=== PATIENT | female | born 1975 | race Caucasian/White ===

== ENCOUNTER 2023-12-17 11:02 | Emergency (ER) | payer BC, SELFPAY ==
[2023-12-17 11:16] VITALS: BP 112/71; PULSE 71; RESP 17; TEMP 36.1; O2SAT 100
[2023-12-17 11:32] VITALS: BP 112/71; PULSE 71; RESP 17; TEMP 36.1; O2SAT 100
--- NOTE | 2023-12-17 11:33 | PC.NURSE ---
in br to obtain ua spec.
--- NOTE | 2023-12-17 12:00 | ED_ITS ---
HPI - Abdominal Pain General Chief Complaint: Abdominal Pain Stated Complaint: Lower Right Abdominal Pain Source: patient Mode of arrival: ambulatory Limitations: no limitations History of Present Illness HPI narrative: Patient presents for evaluation of right lower quadrant pain. Symptom onset 3 days ago. She has a constant dull ache that she rates a 5/10 severity. She has intermittent periods of sharp pain that she rates 6 to 7/10 in severity. She has a history of kidney stones but had pain in her flank with circumferential radiation to the abdomen with stones. She also has a history of ovarian cyst bu t historically had them on the left side. She denies any fever, chills, nausea, vomiting, urinary symptoms. Surgical history positive for tubal ligation and section. She has a history of regular menstruation. LMP 11/25/23. Denies vaginal bleeding or discharge. Related Data Home Medications Medication Instructions Recorded Confirmed No Home Medications 12/17/23 12/17/23 Allergies Allergy/AdvReac Type Severity Reaction Status Date / Time No Known Allergies Allergy Verified 12/17/23 11:05 Review of Systems Review of Systems: CONSTITUTIONAL: Denies fever, chills, or sweats. EYES: Denies visual changes, redness, or discharge. ENT: Denies rhinorrhea, congestion, sore throat, or otalgia. CARDIOVASCULAR: Denies chest pain, palpitations, or edema. RESPIRATORY: Denies cough or dyspnea. GASTROINTESTINAL: Reports RLQ pain. Denies nausea, vomiting, or diarrhea. GENITOURINARY: Denies dysuria or hematuria. SKIN: Denies rash or itching. MUSCULOSKELETAL: Denies back pain, joint pain, or myalgia. NEUROLOGIC: Denies headache, numbness, dizziness, or weakness. PSYCHIATRIC: Denies anxiety or depression. [facility] Past Medical History Medical History Ovarian cyst Surgical History Surgical History History of History of tubal ligation Family History Family History Mother Family history non-contributory Social History Social History (Updated 12/17/23 @ 12:06 by Bobo L.E. Karen, [employer], [employer]) Smoking status: Never smoker Alcohol intake: current Alcohol use details: rare social Substance use: never Living arrangements: with family Gender identity (if verbalized by the patient): Female Sexual Orientation (if Verbalized by the Patient): Straight or Heterosexual Spiritual care concerns: No Exam Narrative: GENERAL: Well-appearing, well-nourished, and in no acute distress. HEAD: Normocephalic, atraumatic. EYES: PERRLA and EOMI. ENT: Nares clear, no rhinorrhea or epistaxis. Mucous membranes moist. Oropharynx without tonsillar hypertrophy exudate or other lesions. Bilateral TMs pearly mena nonbulging NECK: Supple. No adenopathy or masses. No carotid bruits or JVD CHEST: Clear to auscultation. No respiratory distress. No wheezes rales or rhonchi HEART: Regular rate and rhythm. No murmur heard. Normal peripheral pulses. ABDOMEN: Soft, nondistended, normal active bowel sounds. There is tenderness in RLQ without rebound or guarding. EXTREMITIES: Normal range of motion. No edema. SKIN: Warm, dry, no rash. NEURO: No focal deficits. Alert and oriented x3. PSYCH: Normal mood and affect. Course Course Emergency Course: This is a 48-year-old female who presented for evaluation of right-sided abdominal pain. Her urine today does not have evidence of infection. She is tender in the right lower quadrant. I recommended she go to the hospital for further evaluation. She is agreeable with this plan. [facility] as her facility of choice. I contacted [facility] Emergency Department spoke with Dr. Hathaway who agrees to accept pt for transfer there. Level of Care: Express Care Visit Vital Signs Vital signs: Vital Signs Temperature 36.1 C L 12/17/23 11:16 Pulse Rate 71 12/17/23 11:16 Respiratory Rate 17 12/17/23 11:16 Blood Pressure 112/71 12/17/23 11:16 Pulse Oximetry 100 12/17/23 11:16 Temperature 36.1 C L 12/17/23 11:32 Pulse Rate 71 12/17/23 11:32 Respiratory Rate 17 12/17/23 11:32 Blood Pressure 112/71 12/17/23 11:32 Pulse Oximetry 100 12/17/23 11:32 MDM - Abdominal Pain Lab Data Labs: Lab Results 12/17/23 Range/Units 11:58 POC Urine Color Yellow POC Urine Clarity Clear POC Urine pH 7.0 POC Ur Specif [place] 1.015 POC Urine Protein Negative (Negative) POC Ur Glucose (UA) Negative (Negative) POC Urine Ketones Negative (Negative) POC Urine Blood Negative (Negative) POC Urine Nitrite Negative (Negative) POC Urine Bilirubin Negative (Negative) POC Urine Urobilinogen 0.2 POC U Leukocyte Esteras Negative (Negative) Discharge Plan Discharge Clinical Impression: Abdominal pain Patient Disposition: Acute Care Hospital Condition: Stable Prescriptions: No Action No Home Medications Follow-up/Referrals: UNKNOWN,DOCTOR [Primary Care Provider] - Time of Disposition: 12:08
[2023-12-17 12:01] LABS: EDUAAPPEAR Clear; EDUABILI Negative (Negative); EDUABLOOD Negative (Negative); EDUACOLOR1 Yellow; EDUAGLUCOSE Negative (Negative); EDUAKETONE Negative (Negative); EDUALEUKO Negative (Negative); EDUANITRATE Negative (Negative); EDUAPROTEIN Negative (Negative); EDUASPGRAVITY 1.015; EDUAUROBILI 0.2
== END 2023-12-17 12:00 | disposition short-term general hospital (02) ==
PROVIDERS: Emergency Provider Nurse Practitioner
DX: R10.31 Right lower quadrant pain (principal)
CPT/HCPCS: 81003; 99202; G0463

== ENCOUNTER 2023-12-17 12:31 | Emergency (ER) | payer BC, SELFPAY ==
--- NOTE | ~2023-12-17 | CT_ITS ---
EXAMINATION: CT abdomen pelvis w con DATE: 12/17/2023 15:21 INDICATION: right lower quadrant abdominal pain TECHNIQUE: Computed tomography (CT) of the abdomen and pelvis was performed with 100 mL Omnipaque-350 intravenous contrast. Automated exposure control and iterative reconstruction technique were employe d. The dose-length product was 663.93 mGy-cm. COMPARISON: None. FINDINGS: Lower thorax: Multiple sub-6 mm pulmonary nodules. Liver: Normal. Biliary/Gallbladder: Gallbladder is normal. No bile duct dilation. Pancreas: No mass or duct dilation. Spleen: Normal. Adrenals:No mass. Kidneys: No suspicious mass, obstructing stone, or hydronephrosis. Subcentimeter lower pole hypodensi ty, may represent a cyst, focal cortical scar, or insertion site of an accessory renal vessel. GI tract: Mild distal esophageal and gastric wall edema. No small or large bowel dilation. Normal leslee endix. Mesentery/Peritoneum: No ascites, mass, or free air. Retroperitoneum: No mass. Pelvis: Pelvic organs are within normal limits. Soft Tissues: Soft tissues and body wall unremarkable. Bones: No acute osseous finding. IMPRESSION: Mild esophagitis/gastritis. Otherwise, no acute abdominopelvic process detected. Multiple subcentimeter pulmonary nodules, likely representing granulomas. If the patient is at high r isk, consider an optional follow-up low-dose noncontrast CT of the chest in 12 months. Reviewed, dictated and finalized at location [facility]. ER/FITTER IMPRESSION: Mild esophagitis/gastritis. Otherwise, no acute abdominopelvic process detected. Multiple subcentimeter pulmonary nodules, likely representing granulomas. If th e patient is at high risk, consider an optional follow-up low-dose noncontrast CT of the chest in 12 months.
[2023-12-17 12:55] VITALS: BP 109/53; PULSE 76; RESP 16; TEMP 36.2; O2SAT 98
--- NOTE | 2023-12-17 14:50 | ED.GENADULT ---
HPI - General Adult General Chief complaint: Abdominal Pain Stated complaint: sent from for RLQ pain Time Seen by Provider: 12/17/23 14:37 History of Present Illness HPI narrative: patient is a 48 year male presents emergency department with chief complaint of abdominal pain. Patient reports that since she has been having pain in the right lower quadrant area. The patient reports she has had some nausea reports that pain is dull but then develops. Some sharpness. The patient denies radiation to her back Related Data Home Medications Medication Instructions Recorded Confirmed No Home Medications 12/17/23 12/17/23 Allergies Allergy/AdvReac Type Severity Reaction Status Date / Time No Known Allergies Allergy Verified 12/17/23 11:05 Review of Systems Review of Systems: A 10 system review of systems was completed on the patient and is negative except for what is stated in the HPI. Nursing and ancillary documentation was reviewed. [facility] Past Medical History Medical History Ovarian cyst Surgical History Surgical History History of History of tubal ligation Family History Family History Mother Family history non-contributory Social History Social History Smoking status: Never smoker Alcohol intake: current Alcohol use details: rare social Substance use: never Living arrangements: with family Gender identity (if verbalized by the patient): Female Sexual Orientation (if Verbalized by the Patient): Straight or Heterosexual Spiritual care concerns: No Exam Narrative: GENERAL: Well-appearing, well-nourished, and in no acute distress. HEAD: Normocephalic, atraumatic. EYES: PERRLA and EOMI. ENT: Nares clear, no rhinorrhea or epistaxis. Mucous membranes moist. NECK: Supple. CHEST: Clear to auscultation. No respiratory distress. HEART: Regular rate and rhythm. No murmur heard. Normal peripheral pulses. ABDOMEN: Soft, Tenderness to palpation right lower quadrant, nondistended, normal active bowel sounds. EXTREMITIES: Normal range of motion. No edema. SKIN: Warm, dry, no rash. NEURO: No focal deficits. Alert and oriented x3. PSYCH: Normal mood and affect. Course Vital Signs Vital signs: Vital Signs Temperature 36.2 C L 12/17/23 12:55 Pulse Rate 76 12/17/23 12:55 Respiratory Rate 16 12/17/23 12:55 Blood Pressure 109/53 L 12/17/23 12:55 Pulse Oximetry 98 12/17/23 12:55 Oxygen Delivery Room Air 12/17/23 12:55 Temperature 36.2 C L 12/17/23 12:55 Pulse Rate 70 12/17/23 16:47 Respiratory Rate 19 12/17/23 16:47 Blood Pressure 110/55 L 12/17/23 16:47 Pulse Oximetry 99 12/17/23 16:47 Oxygen Delivery Room Air 12/17/23 12:55 Medical Decision Making MDM Narrative Medical decision making narrative: differential diagnosis includes appendicitis, intra-abdominal infection, UTI, ureterolithiasis laboratory studies were obtained on the patient showed normal CBC normal CMP urinalysis showed no evidence of acute infection Vital Signs Vital Signs: Vital Signs Temperature 36.2 C L 12/17/23 12:55 Pulse Rate 76 12/17/23 12:55 Respiratory Rate 16 12/17/23 12:55 Blood Pressure 109/53 L 12/17/23 12:55 Pulse Oximetry 98 12/17/23 12:55 Oxygen Delivery Room Air 12/17/23 12:55 Temperature 36.2 C L 12/17/23 12:55 Pulse Rate 70 12/17/23 16:47 Respiratory Rate 19 12/17/23 16:47 Blood Pressure 110/55 L 12/17/23 16:47 Pulse Oximetry 99 12/17/23 16:47 Oxygen Delivery Room Air 12/17/23 12:55 Lab Data 12/17/23 15:02 12/17/23 15:18 Labs: Lab Results 12/17/23 12/17/23 12/17/23 Range/Units 14:51 14:53 15:02 WBC 6.1 (4.5-10.0) K/mm3 RBC 4.12 L (4.2-5.4) M/mm3 Hgb 13.0 (12.0-15.0) g/dL Hct 38.7 (37.0-47.0) % MCV 93.9 (80-100) fl MCH 31.6 (26-34) pg MCHC 33.6 (32-36) g/dl RDW 12.3 (11.5-14.5) % Plt Count 308 (150-375) k/mm3 MPV 9.7 (7.4-10.4) fl Immature Gran % (Auto) 0.2 (0-0.5) % Neut % (Auto) 46.9 (45.5-73.1) % Lymph % (Auto) 39.6 (18.3-44.2) % [place] % (Auto) 9.1 H (2.6-8.5) % Eos % (Auto) 3.4 (0-4.4) % Baso % (Auto) 0.8 (0.2-1.2) % Lymph # (Auto) 2.43 (0.9-3.2) K/mm3 [place] # (Auto) 0.6 (0.1-0.6) K/mm3 Eos # (Auto) 0.2 (0-0.3) K/mm3 Baso # (Auto) 0.1 (0.0-0.1) K/mm3 Abs Immat Gran (auto) 0.01 (0.00-0.031) K/mm3 Absolute Neuts (auto) 2.9 (1.3-6.7) K/mm3 Absolute Nucleated RBC 0.000 (0.0-0.012) K/mm3 Nucleated RBC % 0.0 (0.0-0.2) % Sodium 136 L (137-145) mmol/L Potassium 3.9 (3.4-5.0) mmol/L Chloride 104 (98-107) mmol/L Carbon Dioxide 26 (22-30) mmol/L Anion Gap 6 (4-12) mmol/L BUN 10 (7-17) mg/dL Creatinine 0.60 L (0.7-1.0) mg/dL Estim Creat Clear Calc 107 ml/min Estimated GFR > 60 (59 - ) Glucose 89 (65-110) mg/dL Calcium 8.8 (8.4-10.2) mg/dL Total Bilirubin 0.5 (0.2-1.3) mg/dL AST 25 (14-36) U/L ALT 25 (6-35) U/L Alkaline Phosphatase 57 (38-126) U/L Total Protein 8.0 (6.3-8.2) g/dL Albumin 4.4 (3.5-5.1) g/dL Lipase 68 (23-300) U/L Urine Color Yellow (Yellow) Urine Appearance Clear (Clear) Urine pH 7.5 (5.0-9.0) Ur Specific [place] 1.007 (1.001-1.035) Urine Protein Negative (Negative) mg/dL Urine Glucose (UA) Negative (Negative) mg/dL Urine Ketones Negative (Negative) mg/dL Ur Blood (Man) Negative (Negative) Urine Nitrate Negative (Negative) Urine Bilirubin Negative (Negative) Urine Urobilinogen 0.2 (<2.0) mg/dL Leukocyte Esterase Rfl Negative (Negative) PEYMAN/UL POC Urine HCG, Qual Negative (Negative) 12/17/23 Range/Units 15:18 WBC (4.5-10.0) K/mm3 RBC (4.2-5.4) M/mm3 Hgb (12.0-15.0) g/dL Hct (37.0-47.0) % MCV (80-100) fl MCH (26-34) pg MCHC (32-36) g/dl RDW (11.5-14.5) % Plt Count (150-375) k/mm3 MPV (7.4-10.4) fl Immature Gran % (Auto) (0-0.5) % Neut % (Auto) (45.5-73.1) % Lymph % (Auto) (18.3-44.2) % [place] % (Auto) (2.6-8.5) % Eos % (Auto) (0-4.4) % Baso % (Auto) (0.2-1.2) % Lymph # (Auto) (0.9-3.2) K/mm3 [place] # (Auto) (0.1-0.6) K/mm3 Eos # (Auto) (0-0.3) K/mm3 Baso # (Auto) (0.0-0.1) K/mm3 Abs Immat Gran (auto) (0.00-0.031) K/mm3 Absolute Neuts (auto) (1.3-6.7) K/mm3 Absolute Nucleated RBC (0.0-0.012) K/mm3 Nucleated RBC % (0.0-0.2) % Sodium (137-145) mmol/L Potassium (3.4-5.0) mmol/L Chloride (98-107) mmol/L Carbon Dioxide (22-30) mmol/L Anion Gap (4-12) mmol/L BUN (7-17) mg/dL Creatinine 0.80 (0.7-1.0) mg/dL Estim Creat Clear Calc 82 ml/min Estimated GFR > 60 (59 - ) Glucose (65-110) mg/dL Calcium (8.4-10.2) mg/dL Total Bilirubin (0.2-1.3) mg/dL AST (14-36) U/L ALT (6-35) U/L Alkaline Phosphatase (38-126) U/L Total Protein (6.3-8.2) g/dL Albumin (3.5-5.1) g/dL Lipase (23-300) U/L Urine Color (Yellow) Urine Appearance (Clear) Urine pH (5.0-9.0) Ur Specific [place] (1.001-1.035) Urine Protein (Negative) mg/dL Urine Glucose (UA) (Negative) mg/dL Urine Ketones (Negative) mg/dL Ur Blood (Man) (Negative) Urine Nitrate (Negative) Urine Bilirubin (Negative) Urine Urobilinogen (<2.0) mg/dL Leukocyte Esterase Rfl (Negative) PEYMAN/UL POC Urine HCG, Qual (Negative) Discharge Plan Discharge Clinical Impression: Abdominal pain Patient Disposition: Home, Self-Care Condition: Stable Instructions: Antibiotic Form, Abdominal Pain (ED) Prescriptions: No Action No Home Medications Follow-up/Referrals: UNKNOWN,DOCTOR [Non-Staff] - [facility]ANNALISE [Primary Care Provider] - Time of Disposition: 17:07
[2023-12-17 14:55] LABS: BEDSIDEPREGUCG Negative (Negative)
[2023-12-17] MEDS: ONDANSETRON INJ 4 MG/2 ML VIAL IV PUSH (14:57)
[2023-12-17] MEDS: MORPHINE SULFATE (*CRX) 4 MG/ML INJ IV PUSH (14:57)
[2023-12-17 14:58] LABS: Add Urine Microscopic? NO; Appearance Urine Clear (Clear); Bilirubin Urine Negative (Negative); Blood Urine Negative (Negative); Color Urine Yellow (Yellow); Glucose Urine UA Negative (Negative); Ketones Urine Negative (Negative); Leukocyte Esterase Ur Negative LEU/UL (Negative); Nitrate Urine Negative (Negative); Protein Urine Negative (Negative); Specific Grav Ur 1.007 (1.001-1.035); Urobilinogen Urine 0.2 mg/dL (<2.0); pH Urine 7.5 (5.0-9.0)
[2023-12-17 15:05] VITALS: BP 111/62; PULSE 79; RESP 16; O2SAT 98
[2023-12-17 15:07] LABS: Basophils Absolute Auto 0.1 K/mm3 (0.0-0.1); Basophils Percent Auto 0.8 % (0.2-1.2); Eosinophils Absolute Auto 0.2 K/mm3 (0-0.3); Eosinophils Percent Auto 3.4 % (0-4.4); Hematocrit 38.7 % (37.0-47.0); Immature Granulocyte Absolute 0.01 K/mm3 (0.00-0.031); Immature Granulocyte Percent A 0.2 % (0-0.5); Lymphocytes Absolute Auto 2.43 K/mm3 (0.9-3.2); Lymphocytes Percent Auto 39.6 % (18.3-44.2); Mean Corpuscular HGB Conc 33.6 g/dl (32-36); Mean Corpuscular Hemoglobin 31.6 pg (26-34); Mean Corpuscular Volume 93.9 fl (80-100); Mean Platelet Volume 9.7 fl (7.4-10.4); Monocytes Absolute Auto 0.6 K/mm3 (0.1-0.6); Monocytes Percent Auto 9.1 % (2.6-8.5); Neutrophils Absolute Auto 2.9 K/mm3 (1.3-6.7); Neutrophils Percent Auto 46.9 % (45.5-73.1); Platelet Count Result 308 k/mm3 (150-375); Red Blood Count 4.12 M/mm3 (4.2-5.4); Red Cell Distribution Width 12.3 % (11.5-14.5); White Blood Count 6.1 K/mm3 (4.5-10.0)
[2023-12-17 15:19] LABS: Alanine Aminotransferase 25 U/L (6-35); Albumin Level 4.4 g/dL (3.5-5.1); Alkaline Phosphatase 57 U/L (38-126); Anion Gap 6 mmol/L (4-12); Aspartate Amino Transferase 25 U/L (14-36); Bilirubin,Total 0.5 mg/dL (0.2-1.3); Blood Urea Nitrogen 10 mg/dL (7-17); Calcium 8.8 mg/dL (8.4-10.2); Carbon Dioxide 26 mmol/L (22-30); Chloride 104 mmol/L (98-107); Estimated CRCL calculation 107 ml/min; Estimated Glomerular Filt Rate > 60; Glucose 89 mg/dL (65-110); Lipase 68 U/L (23-300); Potassium 3.9 mmol/L (3.4-5.0); Sodium 136 mmol/L (137-145)
[2023-12-17 15:21] LABS: Estimated CRCL calculation 82 ml/min; Estimated Glomerular Filt Rate > 60
[2023-12-17 16:47] VITALS: BP 110/55; PULSE 70; RESP 19; O2SAT 99
== END 2023-12-17 17:25 | disposition home or self-care (01) ==
PROVIDERS: Emergency Provider Emergency Medicine
DX: R10.31 Right lower quadrant pain (principal); K20.90 Esophagitis, unspecified without bleeding; K29.70 Gastritis, unspecified, without bleeding; R91.8 Other nonspecific abnormal finding of lung field
CPT/HCPCS: 36415; 74177; 80053; 81003; 81025; 83690; 85025; 96374; 96375; 99284; J2270; J2405; Q9967

== ENCOUNTER 2024-03-23 13:56 | Emergency (ER) | payer OTHER, SELFPAY ==
--- OUTSIDE RECORDS SUMMARY | 2024-03-23 13:59 | XMS_ITS | Patient Health Summary ---
Author Organization [facility] Address [address] [place] [address] Care Team Providers Care School Secretary Name Role Phone Maria A Boyce MD Unavailable [phone] [facility],non-owned Affiliates and Associated Physician Practices is amultiple site organization consisting of ambulatory clinics and hospital sitesin [place], [place] and [place]. This disclosure is being madepursuant to the Care Everywhere program and may not contain all information available regarding this patient. Last updated 17.[facility] Allergies No known active allergies Active Problems Problem Noted Date Diagnosed Date Encounter for routine screen ing for malformation using ultrasonics 08/20/2013 Sequential Screen 06/21/2013 Advanced maternal age (AMA) in 014 History of LEEP (loop electr osurgical excision procedure) of cervix complicating 06/21/2013 H/O: 06/21/2013 Social History Tobacco Use Types Packs/Day Years Used Date Smoking Tobacco: Never Smokeless Tobacco: Never Alcohol Use Standard Drinks/Week Comments Never 0 (1 standard drink = 0.6 oz pur e alcohol) Sex and Gender Information Value Date Recorded Sex Assigned at Not on file Gender Identity Not on file Sexual Orientation Not on file Last Filed Vital Signs Vital Sign Reading Time Taken Comments Blood Pressure 110/74 08/18/2021 9:02 AM CDT Pulse 83 09/10/2014 11:20 AM CDT Temperature 36.9 C (98.5 F) 09/10/2014 11:20 AM CDT Respiratory Rate 18 09/10/2014 11:20 AM CDT Oxygen Saturation - - Inhaled Oxygen Concentration - - Weight 90.3 kg (199 lb) 08/18/2021 9:02 AM CDT Height 160 cm (5' 3 ) 08/18/2021 9:02 AM CDT Body Mass Index 35.25 08/18/2021 9:02 AM CDT Procedures * ANTI-MULLERIAN HORMONE FEMALE(Performed 08/18/2021) 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 * XR CALCANEUS RIGHT 2VW OR MORE(Performed 09/19/2016) * MRI ABDOMEN WWO CONTRAST(Performed 10/20/2014) * CREATININE BLOOD - POCT (IP) [facility](Performed 10/20/2014) * CANCER ANTIGEN (CA) 19-9(Performed 09/10/2014) * ALPHA FETOPROTEIN BLOOD TUMOR MARKER(Performed 09/10/2014) * HEPATITIS C ANTIBODY(Performed 09/10/2014) * HEPATITIS B SURFACE ANTIGEN W RFLX CONFIRMATION(Performed 09/10/2014) * CEA BLOOD(Performed 09/10/2014) * COMPREHENSIVE METABOLIC PANEL(Performed 09/10/2014) * CBC W AUTO DIFFERENTIAL(Performed 09/10/2014) * CBC W AUTO DIFFERENTIAL(Performed 09/10/2014) * SONOGRAM - COMPLETE(Performed 08/20/2013) Performed for Advanced maternal age (AMA) in , second trimester * SONOGRAM - COMPLETE(Performed 06/25/2013) Performed for Sequential Screen, Advanced maternal age (AMA) in Results * ANTI-MULLERIAN HORMONE FEMALE (08/18/2021) Anti-Mullerian Hormone (AMH) Female 0.56 0.01 - 2.99 ng/mL [facility] Comment: REPORT COMMENT: FASTING:NO AN UPDATE OR CORRECTION HAS BEEN MADE TO NAME Test Performed at: [facility] [address] [place] [address] NEIL YUN MD Blood BLOOD SPECIMEN / Unknown 08/18/2021 08/18/2021 9:44 AM CDT Jerel Lee MD LAB - CHEMISTRY ORD ERABLES [facility] [address] [place] [address] * XR CALCANEUS RIGHT 2VW OR MORE (09/19/2016 12:08 PM CDT) Anatomical Region Laterality Modality Ankle / Foot, Lower Extremity Ot her Impressions 09/19/2016 2:57 PM CDT IMPRESSION: Unchanged appearance of ORIF of the calcaneus. No ununited fracture line is evident. This report was electronically signed by KAREN PENA M.D. on 09/19/2016 2:57 PM . Narrative 09/19/2016 2:57 PM CDT Exam: XR CALCANEUS RIGHT 2+ VW Date: 09/19/2016 12:09 PM History: Right Heel PAin Comparison: Outside exam done 04/07/2016 FINDINGS: There has been internal fixation of the calcaneus. No ununited calcaneal fracture line is visible. Hardware is intact. There is no acute fracture or dislocation. No soft tissue abnormality. Procedure Note Karen Pena MD - 05/05/2017 Exam: XR CALCANEUS RIGHT 2+ VW Date: 09/19/2016 12:09 PM History: Right Heel PAin Comparison: Outside exam done 04/07/2016 FINDINGS: There has been internal fixation of the calcaneus. No ununitedcalcaneal fracture line is visible. Hardware is intact. There is no acutefracture or dislocation. No soft tissue abnormality. IMPRESSION IMPRESSION: Unchanged appearance of ORIF of the calcaneus. No ununited fracture lineis evident. This report was electronically signed by KAREN PENA M.D. on 09/19/20162:57 PM . Jeff Bateman DO DIAGNOSTIC IMAGING O RDERABLES * MRI ABDOMEN WWO CONTRAST (10/20/2014 9:32 AM CDT) Anatomical Region Laterality Modality Abdomen Other Impressions 10/21/2014 5:55 PM CDT IMPRESSION: 1. A nonspecific 1.1 cm hypointense lesion in hepatic segment 8 on the arterial phase images correlates with the hypoattenuating lesion since on the prior CT examination. This lesion has no T2 correlate, fades to isointensity on the delayed images, and remains indeterminate. Although this lesion does not have typical MR characteristics of a benign lesion, no definite worrisome features for malignancy are identified. A follow up MRI is recommended to document stability. 2. A 6 mm left lower lobe nodule, this was present on the outside CT dated 04/02/14. Recommend follow-up CT chest in 12 months. Report dictated by Geo Foster M.D. (resident). This report was approved by Geo Foster M.D. on 10/21/2014 8:08 AM . I, Dr. CARLOS BYRNE M.D. have personally reviewed and interpreted this examination/study. This report was electronically signed by CARLOS BYRNE M.D. on 10/21/2014 5:55 PM . Narrative 10/21/2014 5:55 PM CDT EXAMINATION: Magnetic resonance imaging (MRI) abdomen with and without contrast HISTORY: 38 year-old female with indeterminant liver lesion in the right hepatic lobe on prior CT abdomen TECHNIQUE: MRI of the abdomen was performed prior to and after administration of 15 mL Multihance according to standard protocol. COMPARISON: Prior CT abdomen from [facility] dated 04/04/2014. FINDINGS: A 6 mm nodule is present in the left lower lobe (series 11 image 23), unchanged from the prior CT. There is no evidence of hepatic steatosis. A 1.1 cm hypointense lesion on the arterial phase images in hepatic segment 8 corresponds to the hypoattenuating lesion on the prior outside CT (series 7 image 28). This lesion does not have a T2 correlate and becomes isointense with respect to the liver on delayed images. No other hepatic lesions are identified. The intrahepatic and extrahepatic bile ducts are not dilated. Conventional hepatic arterial anatomy is present. The portal vein and its major branches are patent. The hepatic veins are patent. The gallbladder, pancreas, spleen, adrenals, and kidneys are normal. The visualized bowel loops appear normal. No free intraperitoneal fluid is identified. No suspicious osseous lesions are identified. Procedure Note Carlos Byrne MD - 05/06/2017 EXAMINATION: Magnetic resonance imaging (MRI) abdomen with and withoutcontrast HISTORY: 38 year-old female with indeterminant liver lesion in the righthepatic lobe on prior CT abdomen TECHNIQUE: MRI of the abdomen was performed prior to and afteradministration of 15 mL Multihance according to standard protocol. COMPARISON: Prior CT abdomen from [facility] dated 04/04/2014. FINDINGS: A 6 mm nodule is present in the left lower lobe (series 11 image 23),unchanged from the prior CT. There is no evidence of hepatic steatosis. A 1.1 cm hypointense lesion onthe arterial phase images in hepatic segment 8 corresponds to thehypoattenuating lesion on the prior outside CT (series 7 image 28). Thislesion does not have a T2 correlate and becomes isointense with respect to the liver on delayed images. No otherhepatic lesions are identified. The intrahepatic and extrahepatic bile ducts are not dilated. Conventionalhepatic arterial anatomy is present. The portal vein and its majorbranches are patent. The hepatic veins are patent. The gallbladder, pancreas, spleen, adrenals, and kidneys are normal. Thevisualized bowel loops appear normal. No free intraperitoneal fluid isidentified. No suspicious osseous lesions are identified. IMPRESSION IMPRESSION: 1. A nonspecific 1.1 cm hypointense lesion in hepatic segment 8 on thearterial phase images correlates with the hypoattenuating lesion since onthe prior CT examination. This lesion has no T2 correlate, fades toisointensity on the delayed images, and remains indeterminate. Although this lesion does not have typical MRcharacteristics of a benign lesion, no definite worrisome features formalignancy are identified. A follow up MRI is recommended to documentstability. 2. A 6 mm left lower lobe nodule, this was present on the outside CT date04/02/14. Recommend follow-up CT chest in 12 months. Report dictated by Geo Foster M.D. (resident). This report was approved by Geo Foster M.D. on 10/21/2014 8:08 AM. I, Dr. CARLOS BYRNE M.D. have personally reviewed and interpreted thisexamination/study. This report was electronically signed by CARLOS BYRNE M.D. on 10/21/20145:55 PM . John Carrillo MD MR ORDERABLES * CREATININE BLOOD - POCT () [facility] (10/20/2014) Creatinine POCT 0.69 0.3 - 1.3 mg/dL [facility] eGFR POCT 60 60 ml/min [facility] 10/20/2014 John Carrillo MD LAB - POINT OF CARE ORDERABLES [facility] * CANCER ANTIGEN (CA) 19-9 (09/10/2014 12:33 PM CDT) CA 19-9 1 0 - 35 U/mL [facility] ([facility]) Comment:Amilcar ECLIA methodol ogy Blood specimen (specimen) BLOOD SPECIMEN / Unknown 09/10/2014 12:33 PM CDT 09/10/2014 12:42 PM CDT Narrative [facility]) - 09/11/2014 6:16 AM CDT Performed at: [address] [place] [address] [id number] Label Folder: Ian Bennett PhD, Phone: [phone] John Carrillo MD LAB - CHEMISTRY EZEKIEL HUMPHREY Performing Organization Address [facility] Co de Phone Number [facility]) * ALPHA FETOPROTEIN BLOOD TUMOR (09/10/2014 12:33 PM CDT) Alpha-Fetoprotei n Tumor Marker 1.7 0.0 - 8.3 ng/mL [facility]) Comment:Amilcar ECLIA methodol ogy Blood specimen (specimen) BLOOD SPECIMEN / Unknown 09/10/2014 12:33 PM CDT 09/10/2014 12:42 PM CDT Narrative [facility]) - 09/11/2014 6:16 AM CDT Performed at: [address] [place] [address] [id number] Label Folder: Ian Bennett PhD, Phone: [phone] John Carrillo MD LAB - CHEMISTRY EZEKIEL HUMPHREY [facility]) * CBC W AUTO DIFFERENTIAL (09/10/2014 12:33 PM CDT) Only the most recent of2 resultswithin the time period is included. WBC 4.5 3.5 - 10.5 10 3/uL [facility] RBC 4.44 3.90 - 5.00 10 6/uL [facility] Hemoglobin 13.9 12.0 - 15.5 g/dL [facility] Hematocrit 41.2 35.0 - 45.0 % [facility] MCV 92.8 81.0 - 97.0 fL [facility] MCH 31.3 28.0 - 34.0 pg [facility] MCHC 33.7 32.0 - 36.0 g/dL [facility] Platelet Count 295 150 - 400 10 3/uL [facility] RDW-SD 40.9 36.0 - 50.0 fL [facility] RDW-CV 12.0 11.2 - 14.8 % [facility] MPV 10.4 9.3 - 12.8 fL [facility] Neutrophils % 47.6 35.0 - 70.0 % [facility] Lymphocytes % 40.5 19.7 - 55.1 % [facility] Monocytes % 8.8 3.0 - 15.0 % [facility] Eosinophils % 2.2 0.0 - 6.0 % [facility] Basophil % 0.9 0.0 - 1.5 % [facility] Neutrophils Absolute 2.2 1.6 - 7.0 10 3/uL [facility] Lymphocyte Absolute 1.8 0.8 - 2.9 10 3/uL [facility] Monocytes Absolute 0.40 0.14 - 0.66 10 3/uL [facility] Eosinophils Absolute 0.10 0.00 - 0.22 10 3/uL [facility] Basophils Absolute 0.04 0.00 - 0.06 10 3/uL [facility] Immature Granulocytes % 0.2 0.0 - 1.0 % [facility] Blood specimen (specimen) BLOOD SPECIMEN / Unknown 09/10/2014 12:33 PM CDT 09/10/2014 12:42 PM CDT John Carrillo MD LAB - HEMATOLOGY ORD [facility] [address] [phone] * COMPREHENSIVE METABOLIC PANEL (09/10/2014 12:33 PM CDT) BUN 11 7 - 26 mg/dL [facility] Creatinine 0.9 0.6 - 1.2 mg/dL [facility] Sodium 139 136 - 145 mmol/L [facility] Potassium 4.0 3.5 - 4.5 mmol/L [facility] Chloride 104 98 - 107 mmol/L [facility] CO2 27 22 - 29 mmol/L [facility] Glucose 110 70 - 115 mg/dL [facility] Calcium 9.1 8.4 - 10.2 mg/dL [facility] Protein Total 7.3 6.0 - 8.3 g/dL [facility] Albumin 3.9 3.4 - 5.0 g/dL [facility] Bilirubin Total 0.5 0.2 - 1.2 mg/dL [facility] Alkaline Phosphatase 78 40 - 150 Units/L [facility] ALT 13 0 - 55 Units/L [facility] AST 21 5 - 34 Units/L [facility] Anion Gap 12 8 - 18 [facility] BUN/Creatinine Ratio 12 7 - 23 [facility] Osmolality Calculated 274 270 - 300 mOsm/kg [facility] Albumin/Globulin Ratio 1.1 1.1 - 2.3 [facility] eGFR >60 >60 mL/min/1.7 3 m2 [facility] Blood specimen (specimen) BLOOD SPECIMEN / Unknown 09/10/2014 12:33 PM CDT 09/10/2014 12:42 PM CDT John Carrillo MD LAB - CHEMISTRY EZEKIEL HUMPHREY [address] [phone] * HEPATITIS B SURFACE ANTIGEN W RFLX CONFIRMATION (09/10/2014 12:33 PM CDT) Pathologist [facility] Hepatitis B Virus Surface Antigen Non-reacti ve Non-reacti ve [facility] Blood specimen (specimen) BLOOD SPECIMEN / Unknown 09/10/2014 12:33 PM CDT 09/10/2014 12:42 PM CDT John Carrillo MD LAB - CHEMISTRY EZEKIEL HUMPHREY [address] [phone] * HEPATITIS C ANTIBODY (09/10/2014 12:33 PM CDT) Pathologist [facility] Hepatitis C Antibody Non-react tosha Non-reac tive [facility] Comment: Hepatitis C Antibody screen indicates no serologic evidence of past or current infection with Hepatitis C Virus. Patients with unexplained liver disease who are immunocompromised or suspected of having acute Hepatitis C infection may benefit from Nucleic Acid Test (LINO) for Hepatitis C Viral RNA to confirm Hepatitis C status. Blood specimen (specimen) BLOOD SPECIMEN / Unknown 09/10/2014 12:33 PM CDT 09/10/2014 12:42 PM CDT John Carrillo MD LAB - CHEMISTRY EZEKIEL HUMPHREY Performing Organization Address [facility]/ZIP Co de Phone Number [address] [phone] * CEA BLOOD (09/10/2014 12:33 PM CDT) Pathologist [facility] CEA 0.9 <=5.0 ng/mL [facility] Blood specimen (specimen) BLOOD SPECIMEN / Unknown 09/10/2014 12:33 PM CDT 09/10/2014 12:42 PM CDT John Carrillo MD LAB - CHEMISTRY EZEKIEL HUMPHREY [address] [phone] * SONOGRAM - COMPLETE (08/20/2013 1:48 PM CDT) Only the most recent of2 resultswithin the time period is included. Anatomical Region Laterality Modality Other 08/20/2013 1:48 PM CDT Narrative 08/20/2013 3:37 PM CDT [facility] PHONE: FAX: Pat. Name: ROSEMARY NIETO. No: [id number] Study Date: 08/20/2013 1:48pm , Age: 04 1975, 38 Pregnancies: 6, Para 3 LMP: 04/05/2013 GA by LMP: 19w4d GA by 1st: 19w4d GA by US: 20w4d GA Selected: 19w4d (LMP) ZIYAD: 01/10/2014 Referring MD: Bianca Fernandes MD Facial Operator: Yajaira Guerrier RDMS Hist/Ind: Advanced Maternal Age Anatomy Screen History of LEEP History of MEASUREMENTS & AGE GROWTH EVALUATION Measurement GA Range Srce %for GA Ratios ----- ---- ------- BPD 4.8 cm 20w4d ([id number]) Hadl BPD 77% FL/BPD 0.71 HC 17.7 cm 20w1d ([id number]) Hadl HC 68% FL/AC 0.22 AC 15.6 cm 20w5d ([id number]) Hadl AC 75% HC/AC 1.14 (1.06 - 1.25) FL 3.4 cm 20w5d ([id number]) Hadl FL 78% CI 0.77 (0.70 - 0.86) GA for sonogram 20w4d ([id number]) Weight Estimate: based on (BPD,HC,AC,FL) Avg Weight: 371 gm (317-425) Hadlock : 0lbs, 13oz Cervical Length: 3.7 cm Heart Rate: 151 bpm Amniotic Fluid Index: 05.0cm (Deepest Pocket) CLINICAL SUMMARY Study Number: 2 A cavazos fetus is identified in cephalic presentation. The amniotic fluid volume is within normal limits. The placenta is anterior. IMPRESSION: 1) Cavazos gestation, 19w4d 2) Biometry is consistent with appropriate growth based on prior dating 3) An echogenic intracardiac focus (EIF) was noted 4) No other structural abnormalities were detected on detailed anatomic survey 5) Transvaginal ultrasound confirms a reassuring cervical length of 3.7 cm COUNSELING: I informed Rosemary of today's ultrasound findings and advised her that ultrasound does not allow detection of all structural or chromosomal abnormalities. We discussed the common and benign naure of intracardiac echogenic foci and the weak association that exists between this finding, when it is isolated, and Down syndrome. Rosemary and I discussed her age-based risk of trisomy 21 of approximately 1:200 and I advised her of the ultrasound-revised risk of 1:100. Both noninvasive and invasive testing for aneuploidy was offered and declined. RECOMMEND: Follow up ultrasound as clinically indicated. Thank you for allowing us the opportunity to care for your patient. Ann Munoz MD <Electronic Signature> 08/20/2013 02:59pm Revised Bianca DONATO ORDERABLES Care Teams School Secretary Relationship Specialty Start Date End Date Maria A Boyce MD Family Medicine 06/21/13
--- OUTSIDE RECORDS SUMMARY | 2024-03-23 13:59 | XMS_ITS | Clinical Summary ---
Author Organization [facility] Address [address] [place] [address] Care Team Providers Care Retail Special Event Associate Name Role Phone Maria A Boyce MD Unavailable [phone] Source Comments [facility],non-owned Affiliates and Associated Physician Practices is amultiple site organization consisting of ambulatory clinics and hospital sitesin [place], [place], [place] and [place]. This disclosure is being madepursuant to the Care Everywhere program and may not contain all information available regarding this patient. Last updated 17.[facility] [employer] Allergies No known active allergies Active Problems Problem Noted Date Diagnosed Date Encounter for routine screen ing for malformation using ultrasonics 08/20/2013 Sequential Screen 06/21/2013 Advanced maternal age (AMA) in 014 History of LEEP (loop electr osurgical excision procedure) of cervix complicating 06/21/2013 H/O: 06/21/2013 Family History Medical History Relation Name Comments Osteoporosis Father Cancer - Colon Maternal Grandmother Hypertension Other father side Cancer - Colon Paternal Grandfather Relation Name Status Comments Father Maternal Grandmother Other father side Paternal Grandfather Social History Tobacco Use Types Packs/Day Years [...] Mass Index 35.25 08/18/2021 9:02 AM CDT Plan of Treatment Health Maintenance Due Date Last Done Comments COLOGUARD (AGES 45-75) - COL ON CA SCREENING 1975 COLON MONITORING 1977 COLONOSCOPY - COLON CA SCREENING 1977 CT COLONOGRAPHY - COLON CA SCREENING 1975 Colorectal Cancer Screening 1975 FIT - COLON CA SCREENING 1977 FLEX SIG - COLON CA SCREENING 1977 LIPID TESTING 1975 MAMMOGRAM 1977 PAP SMEAR 1977 HIV SCREENING 1992 DTAP/TDAP/TD VACCINES (1 - Tdap) 1996 HEPATITIS B VACCINE (1 of 3 - 19+ 3-dose series) 1996 SCREENING FOR DIABETES 08/18/2021 09/10/2014 COVID-19 VACCINE (1 - 2023-2 5 season) 2023 INFLUENZA VACCINE (#1) 2023 DEPRESSION SCREENING 02/07/2024 ZOSTER VACCINE (1 of 2) 05/20/2027 HEPATITIS C SCREENING Completed 09/10/2014 HIB VACCINE Aged Out No longer eligi ble based on patient's age to complete this topic HPV VACCINE Aged Out No longer eligi ble based on patient's age to complete this topic MENINGOCOCCAL (Group B) VACCINE Aged Out No longer eligible based on patient's age to complete this topic MENINGOCOCCAL VACCINE Aged Out No jessica lee ann eligible based on patient's age to complete this topic PNEUMOCOCCAL VACCINE Aged Out No long er eligible based on patient's age to complete this topic Procedures Procedure Name Priority Date/Time Associated Diagnosis Comments COMPREHENSIVE METABOLIC PANEL Routine 09/10/2014 12:33 PM CDT HEPATITIS C ANTIBODY Routine 09/10/2014 12:33 PM CDT from Last 3 Months or Most Recently Relevant to Health Maintenance Results * COMPREHENSIVE METABOLIC PANEL (09/10/2014 12:33 PM CDT) BUN 11 7 - 26 mg/dL [facility] Creatinine 0.9 0.6 - 1.2 mg/dL [facility] Sodium 139 136 - 145 mmol/L [facility] Potassium 4.0 3.5 - 4.5 mmol/L [facility] Chloride 104 98 - 107 mmol/L [facility] CO2 27 22 - 29 mmol/L [facility] Glucose 110 70 - 115 mg/dL [facility] Calcium 9.1 8.4 - 10.2 mg/dL [facility] Protein Total 7.3 6.0 - 8.3 g/dL [facility] Albumin 3.9 3.4 - 5.0 g/dL [facility] Bilirubin Total 0.5 0.2 - 1.2 mg/dL [facility] Alkaline Phosphatase 78 40 - 150 Units/L [facility] ALT 13 0 - 55 Units/L [facility] AST 21 5 - 34 Units/L [facility] Anion Gap 12 8 - 18 [facility] BUN/Creatinine Ratio 12 7 - 23 [facility] Osmolality Calculated 274 270 - 300 mOsm/kg [facility] Albumin/Globulin Ratio 1.1 1.1 - 2.3 [facility] eGFR >60 >60 mL/min/1.7 3 m2 [facility] Blood specimen (specimen) BLOOD SPECIMEN / Unknown 09/10/2014 12:33 PM CDT 09/10/2014 12:42 PM CDT John Carrillo MD LAB - CHEMISTRY EZEKIEL Arzate Organization Address City/State/ZIP Co de Phone Number [facility] [address] [phone] * HEPATITIS C ANTIBODY (09/10/2014 12:33 PM CDT) Pathologist [facility] Hepatitis C Antibody Non-react tosha Non-reac tive [facility] Comment: Hepatitis C Antibody screen indicates [...] Carrillo MD LAB - CHEMISTRY EZEKIEL HUMPHREY [facility] [address] [phone] from Last 3 Months or Most Recently Relevant to Health Maintenance Care Teams Retail Special Event Associate Relationship Specialty Start Date End Date Maria A Boyce MD [phone] (work) Family Medicine 06/21/13
--- OUTSIDE RECORDS SUMMARY | 2024-03-23 13:59 | XMS_ITS | Referral Summary ---
Author Organization [facility] Address [address] [place] [address] Care Team Providers Care Coat Joiner Lockstitch Name Role Phone Maria A Boyce MD Unavailable [phone] Source Comments [facility],non-owned Affiliates and Associated Physician Practices is amultiple site organization consisting of ambulatory clinics and hospital sitesin [place], [place], [place] and [place]. This disclosure is being madepursuant to the Care Everywhere program and may not contain all information available regarding this patient. Last updated 17.[facility] [employer] Allergies No known active allergies Active Problems [...] 08/18/2021 9:02 AM CDT Plan of Treatment Not on file Procedures Procedure Name Priority Date/Time Associated Diagnosis Comments COMPREHENSIVE METABOLIC PANEL Routine 09/10/2014 12:33 PM CDT HEPATITIS C ANTIBODY Routine 09/10/2014 12:33 PM CDT from Last 3 Months or Most Recently Relevant to Health Maintenance Results * COMPREHENSIVE METABOLIC PANEL (09/10/2014 12:33 PM CDT) BUN 11 7 - 26 mg/dL [facility] Creatinine 0.9 0.6 - 1.2 mg/dL [facility] Sodium 139 136 - 145 mmol/L [facility] Potassium 4.0 3.5 - 4.5 mmol/L [facility] Chloride 104 98 - 107 mmol/L [facility] CO2 27 22 - 29 mmol/L [facility] Glucose 110 70 - 115 mg/dL [facility] Calcium 9.1 8.4 - 10.2 mg/dL [facility] Protein Total 7.3 6.0 - 8.3 g/dL [facility] Albumin 3.9 3.4 - 5.0 g/dL [facility] Bilirubin Total 0.5 0.2 - 1.2 mg/dL [facility] Alkaline Phosphatase 78 40 - 150 Units/L [facility] ALT 13 0 - 55 Units/L [facility] AST 21 5 - 34 Units/L [facility] Anion Gap 12 8 - 18 [facility] BUN/Creatinine Ratio 12 7 - 23 [facility] Osmolality Calculated 274 270 - 300 mOsm/kg [facility] Albumin/Globulin Ratio 1.1 1.1 - 2.3 [facility] eGFR >60 >60 mL/min/1.7 3 m2 [facility] Blood specimen (specimen) BLOOD SPECIMEN / Unknown 09/10/2014 12:33 PM CDT 09/10/2014 12:42 PM CDT John Carrillo MD LAB - CHEMISTRY [facility] [address] [phone] * HEPATITIS C ANTIBODY (09/10/2014 12:33 PM CDT) Hepatitis C Antibody Non-react tosha Non-reac tive [facility] Comment: Hepatitis C Antibody screen indicates [...] Carrillo MD LAB - CHEMISTRY [facility] [address] [phone] from Last 3 Months or Most Recently Relevant to Health Maintenance Care Teams Coat Joiner Lockstitch Relationship Specialty Start Date End Date Maria A Boyce MD Family Medicine 06/21/13
[2024-03-23 14:13] VITALS: BP 120/66; PULSE 108; RESP 16; TEMP 37.7; O2SAT 99
[2024-03-23 15:11] LABS: EDCOVIDSCREEN Negative (Negative); EDINFLUASCREEN Negative (Negative); EDINFLUBSCREEN Negative (Negative); EDSTREPNEGPOS1 Negative (Negative)
--- NOTE | 2024-03-23 15:11 | ED_ITS ---
HPI - General Adult General Chief complaint: Upper Respiratory Infection Stated complaint: Sore Throat, Fever, Congestion Source: patient Mode of arrival: ambulatory Limitations: no limitations History of Present Illness HPI narrative: Patient presents for evaluation of sick symptoms for last 4 days. Symptoms sinus congestion, postnasal drainage, sore throat, bilateral otalgia, occasional cough, fever and chills. She denies any nausea, vomiting, diarrhea. She was recently exposed to influenza by one of her family members. She does not smoke. She has taken some OTC cough medication with mild improvement in her symptoms thereafer. Related Data Allergies Allergy/AdvReac Type Severity Reaction Status Date / Time No Known Allergies Allergy Verified 03/23/24 14:16 Review of Systems Review of Systems: CONSTITUTIONAL: Reports fever and chills. EYES: Denies visual changes, redness, or discharge. ENT: Reports sinus congestion, nasal drainage, sore throat and bilateral ear pain CARDIOVASCULAR: Denies chest pain, palpitations, or edema. RESPIRATORY: Reports cough. Denies shortness of breath. GASTROINTESTINAL: Denies abdominal pain, nausea, vomiting, or diarrhea. GENITOURINARY: Denies dysuria or hematuria. SKIN: Denies rash or itching. MUSCULOSKELETAL: Denies back pain, joint pain, or myalgia. NEUROLOGIC: Denies headache, numbness, dizziness, or weakness. PSYCHIATRIC: Denies anxiety or depression. [facility] Past Medical History Medical History Ovarian cyst Surgical History Surgical History History of History of tubal ligation Family History Family History Mother Family history non-contributory Social History Social History Smoking status: Never smoker Alcohol intake: current Alcohol use details: rare social Substance use: never Living arrangements: with family Gender identity (if verbalized by the patient): Female Sexual Orientation (if Verbalized by the Patient): Straight or Heterosexual Spiritual care concerns: No Exam Narrative: GENERAL: Well-appearing, well-nourished, and in no acute distress. HEAD: Normocephalic, atraumatic. EYES: PERRLA and EOMI. ENT: Nares clear, no rhinorrhea or epistaxis. Bilateral maxillary sinus tenderness. Mucous membranes moist. Posterior pharyngeal erythema. Oropharynx without tonsillar hypertrophy exudate or other lesions. Bilateral tympanic membrane erythema NECK: Supple. No adenopathy or masses. No carotid bruits or JVD CHEST: Clear to auscultation. No respiratory distress. No wheezes rales or rhonchi HEART: Regular rate and rhythm. No murmur heard. Normal peripheral pulses. ABDOMEN: Soft, nontender, nondistended, normal active bowel sounds. EXTREMITIES: Normal range of motion. No edema. SKIN: Warm, dry, no rash. NEURO: No focal deficits. Alert and oriented x3. PSYCH: Normal mood and affect. Course Course Emergency Course: This is a 48-year-old female presented for evaluation of sick symptoms. Her influenza A is positive. She also meets criteria for bacterial sinusitis based upon presence of yellow nasal drainage in setting of fever. Will DC with Tamiflu and Augmentin. Increase hydration. [id number] agents for symptom management. Follow up with primary provider. Go to the emergency department for worsening symptoms. Patient in agreement with plan of care. Level of Care: Express Care Visit Vital Signs Vital signs: Vital Signs Temperature 37.7 C H 03/23/24 14:13 Pulse Rate 108 H 03/23/24 14:13 Respiratory Rate 16 03/23/24 14:13 Blood Pressure 120/66 03/23/24 14:13 Pulse Oximetry 99 03/23/24 14:13 Oxygen Delivery Room Air 03/23/24 14:13 Temperature 37.7 C H 03/23/24 14:13 Pulse Rate 108 H 03/23/24 14:13 Respiratory Rate 16 03/23/24 14:13 Blood Pressure 120/66 03/23/24 14:13 Pulse Oximetry 99 03/23/24 14:13 Oxygen Delivery Room Air 03/23/24 14:13 Medical Decision Making Vital Signs Vital Signs: Vital Signs Temperature 37.7 C H 03/23/24 14:13 Pulse Rate 108 H 03/23/24 14:13 Respiratory Rate 16 03/23/24 14:13 Blood Pressure 120/66 03/23/24 14:13 Pulse Oximetry 99 03/23/24 14:13 Oxygen Delivery Room Air 03/23/24 14:13 Temperature 37.7 C H 03/23/24 14:13 Pulse Rate 108 H 03/23/24 14:13 Respiratory Rate 16 03/23/24 14:13 Blood Pressure 120/66 03/23/24 14:13 Pulse Oximetry 99 03/23/24 14:13 Oxygen Delivery Room Air 03/23/24 14:13 Lab Data Labs: Lab Results 03/23/24 Range/Units 15:09 POC Influenza A Ag Negative (Negative) POC Influenza B Ag Negative (Negative) POC SARS CoV-2 Ag Negative (Negative) POC Grp A Strep Screen Negative (Negative) Discharge Plan Discharge Clinical Impression: Sinusitis, Influenza A Patient Disposition: Home, Self-Care Condition: Stable Instructions: Antibiotic Form, Sinusitis (ED), Influenza (ED) Patient Language: French Prescriptions: New amoxicillin-pot clavulanate 875-125 mg tablet 1 tablet PO Q12H Qty: 20 0RF oseltamivir [Tamiflu] 75 mg capsule 75 mg PO Q12H 5 Days Qty: 10 0RF Follow-up/Referrals: [facility] [Primary Care Provider] - Time of Disposition: 15:07
== END 2024-03-23 15:08 | disposition home or self-care (01) ==
PROVIDERS: Emergency Provider Nurse Practitioner
DX: J32.9 Chronic sinusitis, unspecified (principal); J10.1 Influenza due to other identified influenza virus with other respiratory manifestations; Z20.822 Contact with and (suspected) exposure to COVID-19
CPT/HCPCS: 87081; 87426; 87804; 87880; 99213; G0463

== ENCOUNTER 2024-08-16 12:15 | Emergency (ER) | payer OTHER, SELFPAY ==
--- OUTSIDE RECORDS SUMMARY | 2024-08-16 12:17 | XMS_ITS | Clinical Summary ---
Author Organization [facility] Address [address] [place] [address] Care Team Providers Care Combiner Name Role Phone Maria A Boyce MD Unavailable [phone] Source Comments [facility],non-owned Affiliates and Associated Physician Practices is amultiple site organization consisting of ambulatory clinics and hospital sitesin [place], [place], [place] and [place]. This disclosure is being madepursuant to the Care Everywhere program and may not contain all information available regarding this patient. 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 Not on file Not on file Not on file Last Filed Vital Signs [...] 9:02 AM CDT Height 160 cm (5' 3) 08/18/2021 9:02 AM CDT Body Mass Index [...] SCREENING 1977 LIPID TESTING 1977 MAMMOGRAM 1977 HIV SCREENING 1992 DTAP/TDAP/TD VACCINES (1 - Tdap) 1996 HEPATITIS B VACCINE (1 of 3 - 19+ 3-dose series) 1996 PAP SMEAR 1998 SCREENING FOR DIABETES 08/18/2021 09/10/2014 COVID-19 VACCINE (1 - 2023-2 5 season) 2023 DEPRESSION SCREENING 02/07/2024 INFLUENZA VACCINE (#1) 2024 ZOSTER VACCINE (1 of 2) 05/20/2027 HEPATITIS C SCREENING Completed 09/10/2014 HIB VACCINE Aged Out No longer eligi ble based on patient's age to complete this topic HPV VACCINE Aged Out No longer eligi ble based on patient's age to complete this topic MENINGOCOCCAL (Group B) VACC INE SHARED DECISION-MAKING Aged Out No longer eligibl e based on patient's age to complete this topic MENINGOCOCCAL GROUPS A/C/Y/W VACCINE Aged Out No longer eligible b ased on patient's age to complete this topic [...] CDT) BUN 11 7 - 26 mg/dL [facility] Creatinine 0.9 0.6 - 1.2 mg/dL [facility] Sodium 139 136 - 145 mmol/L [facility] Potassium 4.0 3.5 - 4.5 mmol/L [facility] Chloride 104 98 - 107 mmol/L [facility] CO2 27 22 - 29 mmol/L [facility] Glucose 110 70 - 115 mg/dL [facility] Calcium 9.1 8.4 - 10.2 mg/dL [facility] Protein Total 7.3 6.0 - 8.3 g/dL [facility] Albumin 3.9 3.4 - 5.0 g/dL [facility] Bilirubin Total 0.5 0.2 - 1.2 mg/dL [facility] Alkaline Phosphatase 78 40 - 150 Units/L [facility] ALT 13 0 - 55 Units/L [facility] AST 21 5 - 34 Units/L [facility] Anion Gap 12 8 - 18 [facility] BUN/Creatinine Ratio 12 7 - 23 [facility] Osmolality Calculated 274 270 - 300 mOsm/kg [facility] Albumin/Globulin Ratio 1.1 1.1 - 2.3 [facility] eGFR >60 >60 mL/min/1.7 3 m2 [facility] Blood specimen (specimen) BLOOD SPECIMEN / Unknown 09/10/2014 12:33 PM CDT 09/10/2014 12:42 PM CDT us John Carrillo MD LAB - CHEMISTRY ORDERABLES Fin [facility] Result [address] [phone] * HEPATITIS C ANTIBODY (09/10/2014 12:33 PM CDT) Hepatitis C Antibody Non-react tosha Non-reac tive [facility] Comment: Hepatitis C Antibody screen indicates [...] CDT John Carrillo MD LAB - CHEMISTRY ORDERABLES Fin al Result [address] [phone] from Last 3 Months or Most Recently Relevant to Health Maintenance Insurance [facility] Care Teams Combiner Relationship Specialty Start Date End Date Maria A Boyce MD Family Medicine 06/21/13
[2024-08-16 12:28] VITALS: BP 117/75; PULSE 80; RESP 16; TEMP 36.4; O2SAT 97
[2024-08-16 12:52] LABS: EDSTREPNEGPOS1 Negative (Negative)
--- NOTE | 2024-08-16 12:54 | ED_ITS ---
HPI - URI/Sore Throat General Chief Complaint: Upper Respiratory Infection Stated Complaint: Ear Pain/Sore Throat Time Seen by Provider: 08/16/24 12:20 Source: patient and RN notes reviewed Mode of arrival: ambulatory Limitations: no limitations History of Present Illness HPI Narrative: 49-year-old female presents Express Care complaining of upper respiratory symptoms for approximately 3 days. Patient reports bilateral ear pain, that is worse on the right than the left, sore throat, productive cough, congestion, runny nose. Patient denies any recent swimming. Patient denies any chest pain, shortness of breath, fevers, body aches, chills, nausea vomiting, diarrhea, any other symptoms. Patient has not tried anything [id number] to help with symptoms. Patient denies any significant past medical problems. Related Data Allergies Allergy/AdvReac Type Severity Reaction Status Date / Time No Known Allergies Allergy Verified 03/23/24 14:16 Review of Systems Review of Systems: CONSTITUTIONAL: Denies fever, chills, body aches, or sweats. EYES: Denies visual changes, redness, or discharge. ENT: Positive for rhinorrhea, congestion, sore throat, or otalgia. CARDIOVASCULAR: Denies chest pain, palpitations, or edema. RESPIRATORY: Positive for cough. Negative for dyspnea or wheezing. GASTROINTESTINAL: Denies abdominal pain, nausea, vomiting, or diarrhea. GENITOURINARY: Denies dysuria or hematuria. SKIN: Denies rash or itching. MUSCULOSKELETAL: Denies back pain, joint pain, or myalgia. NEUROLOGIC: Denies headache, numbness, or weakness. PSYCHIATRIC: Denies anxiety or depression. All other systems reviewed are negative, except as documented in HPI. [facility] Past Medical History Medical History Ovarian cyst Surgical History Surgical History History of History of tubal ligation Family History Family History Mother Family history non-contributory Social History Social History Smoking status: Never smoker Alcohol intake: current Alcohol use details: rare social Substance use: never Living arrangements: with family Gender identity (if verbalized by the patient): Female Sexual Orientation (if Verbalized by the Patient): Straight or Heterosexual Spiritual care concerns: No Comments At the time of my signature, I reviewed and agree with the nursing past medical, surgical, social, and family history. There is no relevant family history pertinent to the patient complaint. Exam Narrative: GENERAL: This is a well-nourished, well-developed adult, in no apparent distress. They are non ill-appearing, nontoxic appearing. HEAD: normocephalic, atraumatic. EYES: Sclera clear/white. Vision is grossly intact. Conjunctiva normal bilaterally. Extraocular movements intact. EARS: External ears normal, auditory canals clear and without drainage, TMs without erythema or perforation. Hearing grossly intact. NOSE: External nose normal with no obvious nasal discharge, nasal turbinates erythematous, no rhinorrhea. THROAT: Mucous membranes moist, posterior pharynx erythematous without exudate. Tonsils erythematous with white patches. Uvula is midline. Postnasal drip present. NECK: Neck supple, non-tender without lymphadenopathy, masses or thyromegaly. CARDIOVASCULAR: Regular rate and rhythm without murmurs, gallops, or rubs. RESPIRATORY: Clear to auscultation. Breath sounds equal bilaterally. No wheezes, rales, or rhonchi. SKIN: warm, Dry, intact with no suspicious lesions or rash, good texture and turgor. NEURO: awake, alert, and oriented to person, place and time. There were no obvious focal neurologic abnormalities. EXTREMITIES: No joint tenderness, effusion, or edema noted. BACK: Nontender without deformity. Course Course Emergency Course: Portions of this record may have been created with voice recognition software Level of Care: Express Care Visit Vital Signs Vital signs: Vital Signs Temperature 97.5 F L 08/16/24 12:28 Pulse Rate 80 08/16/24 12:28 Respiratory Rate 16 08/16/24 12:28 Blood Pressure 117/75 08/16/24 12:28 Pulse Oximetry 97 08/16/24 12:28 Oxygen Delivery Room Air 08/16/24 12:28 Temperature 97.5 F L 08/16/24 12:28 Pulse Rate 80 08/16/24 12:28 Respiratory Rate 16 08/16/24 12:28 Blood Pressure 117/75 08/16/24 12:28 Pulse Oximetry 97 08/16/24 12:28 Oxygen Delivery Room Air 08/16/24 12:28 MDM - URI/Sore Throat MDM Narrative Medical decision making narrative: Rapid strep negative. Throat culture pending. Symptoms likely viral in etiology. Discussed physical exam findings. Advised supportive measures and signs/symptoms to go to the ER. Pt is appropriate for outpt treatment and f/u. Differential Diagnosis Differential diagnosis: Likely upper respiratory infection, otitis media, sinusitis, viral infection and pharyngitis Lab Data Attestation: I reviewed the patient's lab results. Labs: Lab Results 08/16/24 Range/Units 12:49 POC Grp A Strep Screen Negative (Negative) Discharge Plan Discharge Clinical Impression: Upper respiratory infection Qualifiers: URI type: unspecified viral URI Qualified Code(s): J06.9 - Acute upper respiratory infection, unspecified Patient Disposition: Home Condition: Stable Instructions: Antibiotic Form, Upper Respiratory Infection (ED) Additional Instructions: Your rapid strep swab was negative today at [facility]. You will be notified in a few days if the culture comes back positive for strep, and appropriate antibiotics will be called in for you at that time. Your symptoms are likely due to a viral illness, which is not treated with antibiotics. Viral symptoms can be present for up to 10-14 days. Take Tylenol or ibuprofen for fever or pain. Rest and stay hydrated. Follow up with your PCP in 3-5 days if symptoms are not improving. Go to the ER immediately if you developed difficulty breathing or swallowing Patient Language: Syriac Follow-up/Referrals: UNKNOWN,DOCTOR [Primary Care Provider] - Time of Disposition: 12:53
== END 2024-08-16 12:57 | disposition home or self-care (01) ==
DX: J02.0 Streptococcal pharyngitis (principal)
CPT/HCPCS: 87081; 87880; 99212; G0463

== ENCOUNTER 2024-10-19 08:14 | Emergency (ER) | payer OTHER, SELFPAY ==
--- OUTSIDE RECORDS SUMMARY | 2024-10-19 08:20 | XMS_ITS | Clinical Summary ---
Author Organization [facility] Address [address] [place] [address] Care Team Providers Care Grief Counsellor Name Role Phone Maria A Boyce MD Unavailable [phone] Source Comments [facility],non-owned Affiliates and Associated Physician Practices is amultiple site organization consisting of ambulatory clinics and hospital sitesin [place], [place], [place] and [place]. This disclosure is being madepursuant to the Care Everywhere program and may not contain all information available regarding this patient. 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2 mg/dL [facility] Protein Total 7.3 6.0 - 8.3 g/dL [facility] Albumin 3.9 3.4 - 5.0 g/dL [facility] Bilirubin Total 0.5 0.2 - 1.2 mg/dL [facility] Alkaline Phosphatase 78 40 - 150 Units/L [facility] ALT 13 0 - 55 Units/L [facility] AST 21 5 - 34 Units/L [facility] Anion Gap 12 8 - 18 [facility] BUN/Creatinine Ratio 12 7 - 23 [facility] Osmolality Calculated 274 270 - 300 mOsm/kg [facility] Albumin/Globulin Ratio 1.1 1.1 - 2.3 [facility] eGFR >60 >60 mL/min/1.7 3 m2 [facility] Blood specimen (specimen) BLOOD SPECIMEN / Unknown 09/10/2014 12:33 PM CDT 09/10/2014 12:42 PM CDT us John Carrillo MD LAB - CHEMISTRY ORDERABLES Fin al Result [facility] [address] [place] [address], [facility] [phone] * HEPATITIS C ANTIBODY (09/10/2014 12:33 PM CDT) Hepatitis C Antibody Non-react tosha Non-reac tive [facility] Comment: Hepatitis C Antibody screen indicates [...] LAB - CHEMISTRY ORDERABLES Fin al Result [id number] [place] [address], [facility] [phone] from Last 3 Months or Most Recently Relevant to Health Maintenance Insurance [facility] Care Teams Grief Counsellor Relationship Specialty Start Date End Date Maria A Boyce MD Family Medicine 06/21/13
[2024-10-19 08:23] VITALS: BP 133/80; PULSE 80; RESP 16; TEMP 36.5; O2SAT 99
--- NOTE | 2024-10-19 08:43 | ED.URI ---
HPI - URI/Sore Throat General Chief Complaint: Upper Respiratory Infection Stated Complaint: sore throat, ears hurt Time Seen by Provider: 10/19/24 08:36 Source: patient and RN notes reviewed Mode of arrival: ambulatory Limitations: no limitations History of Present Illness HPI Narrative: Patient presents today complaining of 3 day history of sore throat, nasal congestion, bilateral ear pain. Denies fever or cough. Currently rates her pain 6/10 and has tried no OTC treatment prior to arrival. Patient was seen in August for similar symptoms with a negative rapid strep, but culture was positive. Related Data Home Medications ?Medication ?Instructions ?Recorded ?Confirmed ?Last Taken ?Type No Home Medications 10/19/24 10/19/24 Unknown History Allergies Allergy/AdvReac Type Severity Reaction Status Date / Time No Known Allergies Allergy Verified 10/19/24 08:27 [facility] Past Medical History Medical History Ovarian cyst Surgical History Surgical History (Reviewed 10/19/24 @ 08:43 by Amanda Gasca, [facility], ) History of History of tubal ligation Family History Family History (Reviewed 10/19/24 @ 08:43 by Amanda Gasca, [facility], ) Mother Family history non-contributory Social History Social History (Reviewed 10/19/24 @ 08:43 by Amanda Gasca, [facility], ) Smoking status: Never smoker Alcohol intake: current Alcohol use details: rare social Substance use: never Living arrangements: with family Gender identity (if verbalized by the patient): Female Sexual Orientation (if Verbalized by the Patient): Straight or Heterosexual Spiritual care concerns: No Comments At time of signature, I have reviewed and agree with nursing past medical, surgical, social and family history unless otherwise noted. Please see nursing chart for further information. There is no relevant family history pertinent to the presenting complaint Exam Narrative: GENERAL: Well-appearing, well-nourished, and in no acute distress. HEAD: Normocephalic, atraumatic. EYES: EOMI. No redness or drainage. Conjunctivae normal. ENT: Mucous membranes pink and moist. Nares mildly congested. No rhinorrhea. TMs normal bilaterally. Throat normal. Uvula midline. NECK: Normal AROM. Supple. No lymphadenopathy. CHEST: No respiratory distress. Clear to auscultation. HEART: Regular rate and rhythm. No murmur appreciated. EXTREMITIES: Normal range of motion. No edema. SKIN: Warm, dry, no rash. Capillary refill normal. Normal skin turgor. NEURO: No focal deficits. Alert and oriented x3. Gait steady. PSYCH: Normal affect. No signs of depression or anxiety. Course Course Level of Care: Express Care Visit Vital Signs Vital signs: Vital Signs Temperature 97.7 F 10/19/24 08:23 Pulse Rate 80 10/19/24 08:23 Respiratory Rate 16 10/19/24 08:23 Blood Pressure 133/80 10/19/24 08:23 Pulse Oximetry 99 10/19/24 08:23 Oxygen Delivery Room Air 10/19/24 08:23 Temperature 97.7 F 10/19/24 08:23 Pulse Rate 80 10/19/24 08:23 Respiratory Rate 16 10/19/24 08:23 Blood Pressure 133/80 10/19/24 08:23 Pulse Oximetry 99 10/19/24 08:23 Oxygen Delivery Room Air 10/19/24 08:23 Reviewed MDM - URI/Sore Throat MDM Narrative Medical decision making narrative: 49-year-old female patient presents today with a 4 day history of sore throat, nasal congestion, bilateral ear pain. No OTC treatment prior to arrival. Exam shows some mild nasal congestion, but is otherwise negative. Rapid strep negative. Culture pending. Symptoms likely viral in etiology. Discussed [id number] medication use and duration of illness. No prescription medications indicated at this time. Anticipatory guidance given. Differential Diagnosis Differential diagnosis: Likely upper respiratory infection, otitis media, pharyngitis and other (Strep throat) Lab Data Attestation: I reviewed the patient's lab results. Lab results narrative: Rapid strep Critical Care Time Critical Care Time Critical Care Time: No Discharge Plan Discharge Clinical Impression: Upper respiratory infection Qualifiers: URI type: unspecified URI Qualified Code(s): J06.9 - Acute upper respiratory infection, unspecified Patient Disposition: Home Condition: Stable Instructions: Upper Respiratory Infection (DC) Additional Instructions: Your rapid strep swab was negative today at [facility]. You will be notified in a few days if the culture comes back positive for strep, and appropriate antibiotics will be called in for you at that time. Your symptoms are likely due to a viral illness, which is not treated with antibiotics. Viral symptoms can be present for up to 7-10 days. Take Tylenol or ibuprofen for fever or pain. Rest and stay hydrated. Follow up with your PCP in 7 days if symptoms are not improving. Go to the ER immediately if you have any difficulty breathing or swallowing. Your blood pressure was elevated above 120/80 today at Urgent Care. This puts you above the threshold for follow up. Please schedule a followup visit with your personal physician as soon as possible, for further evaluation and treatment. Even blood pressure exceeding 120/80 may indicate pre-hypertension. Patient Language: Sammarinese Prescriptions: No Action No Home Medications Follow-up/Referrals: UNKNOWN,DOCTOR [Primary Care Provider] Time of Disposition: 08:46
[2024-10-19 08:50] LABS: EDSTREPNEGPOS1 Negative (Negative)
== END 2024-10-19 08:50 | disposition home or self-care (01) ==
PROVIDERS: Emergency Provider Nurse Practitioner
DX: J06.9 Acute upper respiratory infection, unspecified (principal)
CPT/HCPCS: 87081; 87880; 99213; G0463